=== PATIENT | male | born 1940 | race Caucasian/White ===

== ENCOUNTER 2020-06-27 13:56 | Outpatient (CLI) | payer MEDICARE, MEDICAID, SELFPAY ==
--- NOTE | 2020-06-27 15:34 | ONC CON_ITS ---
Dr. Lorenz New Patient Note Patient: Kane Tavera Unit #: [id number]: 1940 Dicatated By: Cedric Lorenz M.D.Date of Visit: Jun 27, 2020 Onc MED New Patient/Consult Referring Physician: Dr. Nico Nova M.D. History of Present Illness: Mr. Kane Tavera is a 80-year-old gentleman with 2-months long history of nodule under his chin, for which he was referred to ENT for evaluation and underwent needle aspiration of submental lymph node on May 21, 2020 which showed malignant cell present and features were suggestive of possible neuroendocrine origin and there was a possibility of metastatic process because of that Dr. Nova ordered CT PET scan, which was done on June 08, 2020 showed intense abnormal activity in the transverse colon measuring 2.8 cm with SUV of 12.2, and also showed 2.7 x 4 cm left upper lobe mass with SUV of 18.1 and posterior left hilar and subaortic nodes have high likelihood of malignancy. And biopsied submental node measuring 1.6 cm has SUV of 10. And other malignant FDG positive nodes are present in right axilla, left lower quadrant mesenteric root, left external iliac territories., There are bilateral adrenal masses indicating metastatic disease measuring 4.1 cm on the right with SUV of 17.3 and 4.8 on the left with SUV of 24.1. Fascial and muscular implants are noted in the posterior right renal fascia, fascia in between the right gluteal muscle and subcutaneous lateral right hip. Recent history of basal cell carcinoma removal from right chin, right anterior neck and right posterior neck on May 31, 2020. Patient denies any hemoptysis or hematemesis, denies any melena or hematochezia, denies any weight loss, patient said last colonoscopy was done more than 10 years ago. Denies any abdominal pain. Denies any shortness of breath, patient has history of smoking but quit many years ago. Past Medical History: Mr. Payne medical history consists of anxiety, chronic obstructive pulmonary disease, depression, gastroesophageal reflux disease, history of alcoholism, hypothyroidism, and post traumatic stress disorder. Past Surgical History: Mr. Payne surgical/procedural history consists of cataract excision and cholecystectomy. Medications: Advair Diskus 1 Puff(s) (of 250-50 mcg/dose) Aerosol Powder, Breath Activated Inhalation every am, CeleXA 1 Tablet (of 20 mg) Oral daily, Combivent Respimat 1 Puff(s) (of 20-100 mcg/act) Aerosol, solution Inhalation four times a day, guaiFENesin 1 Tablet (of 400 mg) Oral b.i.d., HYDROcodone-Acetaminophen 1 Tablet (of 10-325 mg) Oral q 4 hours PRN, Melatonin 2 Tablet (of 5 mg) Oral at bedtime, Midodrine HCl 1 Tablet (of 2.5 mg) Oral t.i.d., Milk of Magnesia 30 mL (of 400 mg/5mL) Suspension Oral daily PRN, MiraLax 1 Powder Oral daily, ProAir HFA 2 Puff(s) (of 108 (90 base) mcg/act) Aerosol, solution Inhalation q 4 hours, Robafen DM 5 mL (of 100-10 mg/5mL) Syrup Oral q 4 hours PRN, Senna S 1 Tablet (of 8.6-50 mg) Oral b.i.d., Synthroid 2 Tablet (of 50 mcg) Oral daily Allergies: Aspirin and Levaquin. Social History: Mr. Tavera is . Family History: Mr. Tavera's mother at age 78: jaw cancer. Mr. Tavera's father at age 70: stomach cancer. pt has 3 brothers but is unsure about their medical history. Review Of Symptoms: Review of Systems is not available for this patient. Vital Signs: Most recent vitals are not available for this patient. Performance Status: 1 - No physically strenuous activity, but ambulatory and able to carry out light or sedentary work (e.g. office work, light house work). (ECOG) Physical Examination: ENMT - No mouth sores, no thrush, no jaundice, about 2 cm sized submental lymph node palpable nontender and no overlying skin changes, Respiratory - Lungs are clear to auscultation, Cardiovascular - Regular rate and rhythm of heart, Abdomen - Soft, bowel sounds present, Extremities - No visible edema. Lab/Imaging: Most recent lab results are not available for this patient. 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 Bilaterals centrilobular emphysema. Questionable right hilar lymph node. Basal cell carcinoma involving right chin and right anterior and posterior neck status post removal on May 31, 2020 Plan: Discussed with patient regarding his CT PET scan findings , as well as FNA from submental lymph node which showed malignant cell suggestive of neuroendocrine origin, his CT PET scan shows left upper lobe of lung mass and left hilar/subaortic lymph node which could be small cell lung cancer, which may have metastasis to submental lymph node and also showed metastatic disease to adrenal gland and other sites as seen on PET scan but question is regarding transverse colon mass which could represent second primary or metastatic disease. At this point, we will consider bronchoscopy with biopsy from left upper lobe mass as well as left hilar lymph node and if it shows small cell lung cancer, that will confirm metastatic disease to submental lymph node but if it shows non-small cell or other metastatic process , from other primary like colon, then will consider submental lymph node biopsy to confirm the histology as FNA was suggestive of neuroendocrine origin. We will also refer him to surgery for colonoscopy to assess transverse colon mass and also request Port-A-Cath placement to facilitate systemic therapy. In the meantime , we will do baseline labs CBC CMP and also check CEA level. Patient will return to clinic after bronchoscopy/colonoscopy for further discussion and planning. Signed By: Cedric Lorenz M.D. <<Signature on File>>
[2020-06-27 16:45] LABS: Carcinoembryonic Antigen 3.2 ng/mL (0.0-4.7)
== END 2020-06-27 13:57 | disposition home or self-care (01) ==
PROVIDERS: PCP Family Medicine; Visit Provider Internal Medicine Hematology & Oncology
DX: C80.1 Malignant (primary) neoplasm, unspecified (principal); C79.72 Secondary malignant neoplasm of left adrenal gland; C79.71 Secondary malignant neoplasm of right adrenal gland; C77.8 Secondary and unspecified malignant neoplasm of lymph nodes of multiple regions; C79.89 Secondary malignant neoplasm of other specified sites; C44.319 Basal cell carcinoma of skin of other parts of face; R91.8 Other nonspecific abnormal finding of lung field; R89.7 Abnormal histological findings in specimens from other organs, systems and tissues; R93.3 Abnormal findings on diagnostic imaging of other parts of digestive tract; K63.9 Disease of intestine, unspecified; J43.9 Emphysema, unspecified; Z87.891 Personal history of nicotine dependence
CPT/HCPCS: 36415; 82378

== ENCOUNTER → 2020-07-05 11:21 | Outpatient (BNVA) | payer MEDICARE, MEDICAID, SELFPAY | PROVIDERS: PCP Family Medicine; Visit Provider Surgery | DX: Z11.59 Encounter for screening for other viral diseases (principal); C79.9 Secondary malignant neoplasm of unspecified site | CPT/HCPCS: 87635 ==

== ENCOUNTER 2020-07-10 09:13 | Day surgery (SDC) | payer MEDICARE, MEDICAID, SELFPAY ==
[2020-07-08 10:43] VITALS: BMI 23.3
[2020-07-10 09:31] VITALS: BP 105/57; PULSE 80; RESP 18; TEMP 36.1; O2SAT 95
[2020-07-10] MEDS: sodium chloride 0.9% 1,000 ML 30 ML IV (09:51)
--- NOTE | 2020-07-10 10:36 | ANES.PREANE2 ---
Pre-Anesthetic Assessment Pre-Anesthetic Assessment: Height/Weight: Height 1.75 m Weight 71.668 kg Temp Pulse Resp BP Pulse Ox 97 F L 80 18 105/57 95 07/10/20 09:31 07/10/20 09:31 07/10/20 09:31 07/10/20 09:31 07/10/20 09:31 Preop Diagnosis: Metastatic cancer Proposed Procedure: Operation Date: 07/10/20 11:00 Proposed Procedures p EGD [id number] K21.9 C79.9(Not Applicable) - Beni Leggett MD s Colonoscopy(Not Applicable) - Beni Leggett MD Familial anesthetic complications: None Was Beta Ralph taken within 24 hours: N/A Last intake: Intake Last Liquid Date 07/09/20 Last Liquid Time 19:00 Last Solid Date 07/08/20 Last Solid Time 17:00 Social: Social History: No alcohol and No tobacco Exam: Pre-Anes Outpt Exam: alert, oriented x 3, clear to auscultation bilaterally and regular rate & rhythm Airway: Cervical ROM: WNL MP: 2 Dentition: False Pulmonary: Pulmonary: Asthma Comments: lung mass Metabolic: Metabolic: Thyroid Anesthetic Plan: ASA status: 3 Anesthesia: MAC Risk of > 500 ml blood loss (7ml/kg in children): No Meds/Allergies Current Medications: Current Medications Generic Name Dose Route Start Last Admin Trade Name Freq PRN Reason Stop Dose Admin Sodium Chloride 1,000 mls @ 30 ml s/hr 07/10/20 09:30 07/10/20 09:51 Sodium Chloride 0.9% IV 07/11/20 09:29 30 mls/hr .Q24H CANELO Administration PFSH Anesthesia PFSH: Family History Father Cancer jaw cancer Mother Cancer stomach cancer Denies family history of Anesthesia complication Bleeding disorder Social History Alcohol intake: current Alcohol intake frequency: 3 or more drinks per day Alcohol type: beer and hard liquor Adopted: No Caregiver/support person: Yes Lives independently: Yes Marital status: / Data Anesthesia Cardiac Studies: No Data to Display
--- NOTE | 2020-07-10 11:27 | W.PM.OPSUD ---
Surgery/Procedure H&P Update DATE OF PROCEDURE: July 10, 2020 DATE H&P PERFORMED: 07/03/20 H&P UPDATE INFORMATION: I have reviewed H&P completed within last 30 days, I have examined patient prior to procedure and No changes to prior documentation PREOP DIAGNOSIS: Metastatic cancer PRIMARY INDICATION FOR PROCEDURE: The same PLANNED PROCEDURE: Operation Date: 07/10/20 11:00 Proposed Procedures p EGD [id number] K21.9 C79.9(Not Applicable) - Beni Leggett MD s Colonoscopy(Not Applicable) - Beni Leggett MD
[2020-07-10 12:58] VITALS: BP 133/76; PULSE 75; RESP 18; TEMP 36.6; O2SAT 92
[2020-07-10 13:12] VITALS: BP 136/81; PULSE 87; RESP 18; O2SAT 92
--- NOTE | 2020-07-10 13:25 | ANE.PACU2 ---
Inpatient post-anesthesia follow up: Airway intact: Yes Vital signs: Temperature 97.9 F Pulse Rate 87 Respiratory Rate 18 Blood Pressure 136/81 Pulse Oximetry 92 Oxygen Delivery Me thod Room Air Oxygen Flow Rate Fraction of Inspir ed Oxygen Hydration adequate: Yes Nausea and vomiting: No Pain level: 1 Mental status: Baseline
== END 2020-07-10 13:29 | disposition home or self-care (01) ==
PROVIDERS: PCP Family Medicine; Visit Provider Surgery
PROC: 0DJ08ZZ Inspection of Upper Intestinal Tract, Via Natural or Artificial Opening Endoscopic (ICD-10-PCS; CPT 43235; principal; 2020-07-10 11:00)
PROC: 0DJD8ZZ Inspection of Lower Intestinal Tract, Via Natural or Artificial Opening Endoscopic (ICD-10-PCS; CPT 45378; 2020-07-10 11:00)
DX: C79.9 Secondary malignant neoplasm of unspecified site (principal); D12.0 Benign neoplasm of cecum; D12.4 Benign neoplasm of descending colon; K22.8 Other specified diseases of esophagus; K29.70 Gastritis, unspecified, without bleeding; J45.909 Unspecified asthma, uncomplicated
CPT/HCPCS: 12345; 43239; 45380; 45385; 88305; J2704; J7030

== ENCOUNTER → 2020-07-12 18:33 | Outpatient (BNVA) | payer MEDICARE, MEDICAID, SELFPAY | PROVIDERS: PCP Family Medicine; Visit Provider Surgery | DX: Z11.59 Encounter for screening for other viral diseases (principal); C79.9 Secondary malignant neoplasm of unspecified site | CPT/HCPCS: 87635 ==

== ENCOUNTER 2020-07-19 06:02 | Day surgery (SDC) | payer MEDICARE, MEDICAID, SELFPAY ==
[2020-07-18 12:57] VITALS: BMI 20.9
[2020-07-19] VITALS (10 sets, daily range): BP systolic 111–127; BP diastolic 64–85; PULSE 83–91; RESP 16–22; TEMP 36.3–36.8; O2SAT 95–99
--- NOTE | 2020-07-19 | CT_ITS ---
Guided Bronchoscopy Planning CT images; total exam DLP: 555.54 mGy-cm MTDD
--- NOTE | 2020-07-19 | SCC_ITS ---
Procedure Done: Right subclavian vein PowerPort placement 10.8 seconds of fluoroscopic guidance, for a cumulative dose of 0.87 mGy, was provided to Dr. Leggett by the radiology department. C-arm images of the chest were saved for the patient's permanent record. [facility]
--- NOTE | 2020-07-19 06:04 | SC_ITS ---
WS: [id number] C-ARM RADIOGRAPHS CHEST; 2 IMAGES HISTORY: Port-A-Cath placement COMPARISON: None available. Intraoperative imaging during Port-A-Cath placement. The distal extent of the Port-A-Cath cannot be d etermined. SC/C-arm FL for CVA [id number] IMPRESSION: Intraoperative imaging during Port-A-Cath placement.
--- NOTE | 2020-07-19 06:22 | W.PM.OPSUD ---
Surgery/Procedure H&P Update DATE OF PROCEDURE: July 19, 2020 DATE H&P PERFORMED: 07/03/20 H&P UPDATE INFORMATION: I have reviewed H&P completed within last 30 days, I have examined patient prior to procedure and Changes to prior documentation as noted here CHANGES TO PREVIOUS DOCUMENTATION: Specimens obtained from the esophagus and the colon showed: A. Esophagus, esophageal polyp , polypectomy: ?Squamocolumnar mucosa with reflux associated changes. ?No malignancy identified. B. Colon, descending colon polyp , polypectomy: ?Tubulovillous adenoma (low grade dysplasia). C. Colon, left colonic mass , biopsy: ?Fragments of tubulovillous adenoma (low grade dysplasia). ?Deeper sections examined. PREOP DIAGNOSIS: Metastatic cancer PRIMARY INDICATION FOR PROCEDURE: The same PLANNED PROCEDURE: Operation Date: 07/19/20 07:00 Proposed Procedures s Kim C79.9 95170 [id number] 40986(Not Applicable) - Vivian Smith MD p Portacath Placement 77857 C79.9(Not Applicable) - Beni Leggett MD
[2020-07-19] MEDS: sodium chloride 0.9% 1,000 ML 30 ML IV (06:29)
--- NOTE | 2020-07-19 06:31 | ECG_ITS ---
[facility] Test Date: 2020-07-19 Pat Name: Kane Tavera Department: Room: Gender: Male Nuclear Pharmacist: : 1940 Requested By: Beni Leggett Order Number: [id number] Bishnu MD: NOHEMI CASEY Measurements Intervals [place] Rate: 69 P: 92 WY: 240 QRS: 45 QRSD: 105 T: 81 QT: 377 QTc: 405 Interpretive Statements SINUS RHYTHM WITH FIRST DEGREE AV BLOCK No previous ECG available for comparison Electronically Signed On 07-19-2020 18:23:01 CDT by NOHEMI CASEY [id number]
--- NOTE | 2020-07-19 06:31 | P.ANESASSM_ITS ---
Pre-Anesthetic Assessment Pre-Anesthetic Assessment: Height/Weight: Height 1.83 m Weight 69.853 kg Temp Pulse Resp BP Pulse Ox 97.4 F L 87 16 126/73 96 07/19/20 06:23 07/19/20 06:23 07/19/20 06:23 07/19/20 06:23 07/19/20 06:23 Preop Diagnosis: Metastatic cancer Proposed Procedure: Operation Date: 07/19/20 07:00 Proposed Procedures s Veran C79.9 34721 [id number](Not Applicable) - Vivian Smith MD p Portacath Placement 45156 C79.9(Not Applicable) - Beni Leggett MD Familial anesthetic complications: NOne Was Beta Ralph taken within 24 hours: N/A Last intake: Intake Last Liquid Date 07/18/20 Last Liquid Time 17:00 Last Solid Date 07/18/20 Last Solid Time 17:00 Social: Social History: Tobacco and No alcohol Comment: former smoker, chews Exam: Pre-Anes Outpt Exam: alert, oriented x 3, clear to auscultation bilaterally and regular rate & rhythm Airway: Cervical ROM: WNL MP: 3 Dentition: False Pulmonary: Pulmonary: COPD Comments: lung cancer GI: GI: GERD Neuropsych: Neuropsych: None reported Anesthetic Plan: ASA status: 4 Anesthesia: General and MAC Other: MAc FOR port, general for veran Risk of > 500 ml blood loss (7ml/kg in children): No Meds/Allergies Current Medications: Current Medications Generic Name Dose Route Start Last Admin Trade Name Freq PRN Reason Stop Dose Admin Sodium Chloride 1,000 mls @ 30 ml s/hr 07/19/20 06:15 07/19/20 06:29 Sodium Chloride 0.9% IV 07/20/20 06:14 30 mls/hr .Q24H CANELO Administration PFSH Anesthesia PFSH: Medical History (Updated 07/15/20 @ 09:02 by Vivian Smith MD) Anxiety COPD (chronic obstructive pulmonary disease) Depression GERD (gastroesophageal reflux disease) Hypothyroidism Mass of chin Mass of upper lobe of left lung PTSD (post-traumatic stress disorder) Surgical History (Updated 07/15/20 @ 09:02 by Vivian Smith MD) History of cataract extraction History of laparoscopic cholecystectomy Family History Father Cancer jaw cancer Mother Cancer stomach cancer Denies family history of Anesthesia complication Bleeding disorder Social History Smoking and tobacco status: former smoker Quit status (tobacco): has quit using tobacco Year quit tobacco: 1989 - PD x 40 Years Second hand smoke exposure: No Alcohol intake: former Adopted: No Caregiver/support person: Yes Lives independently: Yes Household members: caregiver Housing: Detention Marital status: / Current occupational status: retired History of recent travel: No Current gender identity: Male Data Anesthesia Cardiac Studies: No Data to Display
[2020-07-19] MEDS: heparin, porcine 1,000 unit/mL INJ 10 mL 10000 UNIT IRRIGATION ×2 (07:13)
[2020-07-19] MEDS: lidocaine 2% INJ 20 mL INJECTION (07:13)
--- NOTE | 2020-07-19 07:33 | P.OP_ITS ---
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 Plan of care; After thorough history physical examination and reviewing the chart, I counseled the patient for Port-A-Cath placement, indications, risks including pneumothorax and injury of major vascular structures, benefits,indications and alternatives were all discussed with the patient, patient understands and is interested to proceed. Rationale was carefully and clearly discussed with the patient.Appropriate informed consent have been reviewed and signed. Procedure: Patient was identified in the holding area and taken to the operative room and placed in supine position IV propofol was given by the anesthesia provider ,both arms were tucked,Time-out was done verifying the patient's name/date of /planned procedure and destination after the procedure, all were in agreement. SCDs confirmed to be functioning, preoperative antibiotics administered per protocol, and beta elke protocol was confirmed, appropriate positioning of the patient was done by me. Medications were reviewed to assess for anticoagulant usage. Risks and benefits and prevention of central line associated blood stream infection (CLABSI) were discussed with the patient/CPOA, and a consent was obtained. Monitors were in place and monitored throughout the procedure. All necessary supplies were available prior to start. Hand hygiene was completed prior to starting. Maximum barrier technique was utilized including a sterile gown, sterile gloves with a hat and mask. Site was was prepped with [chlorhexidine] and a full body drape was placed. 5 mL of 2% lidocaine was injected into the skin with a 25 gauge needle. Prep& drape was done under the usual sterile technique, lidocaine 2% was injected at the site of the stick, started by right subclavian stick that retrieved venous blood was obtained from the first stick, a guidewire was then threaded and under the guidance of fluoroscopy position was confirmed to be in the IVC and my interpretation, there was no PVC changes, at that point the guidewire was secured to the drapes with a hemostat and the needle was taken out, attention was then deviated towards creation of a pocket for the port were lidocaine 2% was injected using an 15 blade knife skin incision was created dissection using the Bovie to create a pocket for the Port-A-Cath to be accommodated at the right upper chest, hemostasis was secured, after the port being appropriately flushed it was inserted into the pocket and a tunneler was used to accommodate the catheter of the port cath to be delivered through the incision first created at the site of the stick, at that point under fluoroscopy an estimated length was measured for the catheter and was cut at the designed level, followed by that a dilator with the sheath introduced onto the guidewire the dilator and the wire were retrieved and the catheter of the port was introduced via the sheath where it was peeled off and the catheter maintained to be in the SVC that was confirmed with fluoroscopy, and the fluoroscopy interpretation was done by me throughout the entire procedure. The port was kept in place,3-0 Vicryl deep subdermal interrupted sutures, skin was then closed by 4-0 Monocryl as subcuticular closure. The stick site was closed by 3/0 Vicryl and surgical glue was used followed by dressing. Patient tolerated the procedure well was taken to the recovery area Count was correct at the end of the procedure I was present for the whole entire procedure Position of the catheter was checked with a postoperative imaging in the form of a CT scan as Dr. Smith requested one for the bronchoscopy procedure and it looks to be in good position.
--- NOTE | 2020-07-19 08:11 | W.PM.OPSUD ---
Surgery/Procedure H&P Update DATE OF PROCEDURE: July 19, 2020 DATE H&P PERFORMED: 07/15/20 H&P UPDATE INFORMATION: I have reviewed H&P completed within last 30 days, I have examined patient prior to procedure and No changes to prior documentation PREOP DIAGNOSIS: Metastatic cancer PRIMARY INDICATION FOR PROCEDURE: Suspected lung cancer PLANNED PROCEDURE: Bronchoscopy inspection of the airway, possible navigational bronchoscopy guided transbronchial biopsies, fine-needle aspiration, bronchoalveolar lavage, percutaneous transthoracic needle biopsy. Operation Date: 07/19/20 07:00 Proposed Procedures s Veran C79.9 47427 [id number](Not Applicable) - Vivian Smith MD p Portacath Placement 12533 C79.9(Not Applicable) - Beni Leggett MD
--- NOTE | 2020-07-19 08:30 | SUR.PHASEII ---
0743 back from or for port v/s 97.3-71-16-140/70 with O2-face mask 100%,O2 sat 100%,sleepy but arousable awaiting to go to cat scan for veran 0758 v/s 20-68-90-152/68 O2 on room air 95%,waking up some,asked if pt needed the ba 0805 gone to cat scan via stretcher with danelle rep, 0820 back from cat scan 0835 gone to OR via stretcher for bronchoscopy/danelle
[2020-07-19] MEDS: lidocaine 1% INJ 20 mL XX (08:56)
--- NOTE | 2020-07-19 09:55 | SUR.OPER ---
EBUS BALLOON INTACT UPON REMOVAL
--- NOTE | 2020-07-19 10:02 | PM.OP ---
Operative Report Date of procedure: July 19, 2020 Pre-op Diagnosis: Metastatic cancer Post-op diagnosis: same Brief History: This is an 80-year-old gentleman coming in for evaluation of suspected lung cancer Procedure: Name of the procedure: Bronchoscopy with inspection of the airway, bronchoalveolar lavage, endobronchial biopsies, endobronchial ultrasound-guided transbronchial needle aspiration of lymph nodes and control of bleeding. Indication: Suspected lung cancer Anesthesia: General anesthesia. Local anesthesia: The julius in the right and left mainstem bronchi were anesthetized with 1% lidocaine, 3 mL. Description of the procedure: The procedure was explained to the patient and the consent was obtained. The patient was brought to the OR. The patient underwent endotracheal intubation for general anesthesia. Following induction of general anesthesia, the bronchoscope was advanced through the ET tube. The lower trachea appeared to be saber-sheath in appearance. The julius was sharp. The julius, the right and left mainstem bronchi are anesthetized with 1% lidocaine. In a systematic manner bilateral bronchial tree was then examined. The bronchoscope was advanced into the left mainstem bronchus. There was mild erythema. The left upper lobe, lingula and left lower lobe bronchi were examined up to the third subsegmental level. An endobronchial lesion was identified in the fourth subsegmental level in the anterior segment of the left upper lobe. Navigational bronchoscopy guided endobronchial biopsies were obtained from this lesion. Bronchoalveolar lavage and Cytobrush was performed from the same segment. The bronchoscope was then introduced into the right mainstem bronchus. The right upper lobe, right middle lobe and right lower lobe bronchi were examined up to the third subsegmental level and no abnormalities were identified. There was mucus throughout the airways. Bronchoalveolar lavage was performed from the anterior segment of the left upper lobe. The fluid was sent for cytology. Endobronchial biopsies were performed from anterior segment of left upper lobe. The endobronchial ultrasound was introduced through the ET tube. No mediastinal lymphadenopathy was identified. Slightly prominent left hilar lymph node was identified. Fine-needle aspiration was performed from station 7 and 11 L. Samples: 1. Bronchoalveolar lavage specimen was sent for cytology. 2. The endobronchial biopsies are sent for histopathology. 3. The Cytobrush was sent for cytology. 4. The transbronchial needle aspiration of the aforementioned lymph node groups were sent for cytology. Complications: There was no immediate complications. No significant bleeding post procedure.
[2020-07-19] MEDS: ipratropium 0.5 mg/2.5 mL Neb INHALATION (10:18)
--- NOTE | 2020-07-19 10:30 | ANE.PACU2 ---
Inpatient post-anesthesia follow up: Airway intact: Yes Vital signs: Temperature 98 F Pulse Rate 83 Respiratory Rate 18 Blood Pressure 112/64 Pulse Oximetry 97 Oxygen Delivery Me thod Room Air Oxygen Flow Rate 8 Fraction of Inspir ed Oxygen Hydration adequate: Yes Nausea and vomiting: No Pain level: 2 Mental status: Baseline
--- NOTE | 2020-07-19 10:34 | PTH.EBUS ---
Endobronchial Ultrasound Specimen(s): Left upper lobe endobronchial biopsy Gross: The specimen is received fresh labeled with the patient's name and MRN number and consists of a sheriff-white fragment measuring 0.1 cm in greatest dimension. To touch prep Diff-Quik slides are prepared for cytology rapid onsite interpretation. Preliminary Impression: Lung, left upper lobe, endobronchial biopsy: ?Atypical clusters identified. - Specimen Information Pathologist: Yesika Joe Date: 07/19/20 Specimen reported at what time: 09:10 - Clinician Specimen collection time: 09:00 Clinician reported to: Vivian Smith
--- NOTE | 2020-07-19 10:37 | PTH.EBUS ---
Endobronchial Ultrasound Specimen(s): Lung, station 7 lymph node fine-needle aspiration biopsy. Gross: Specimen is received fresh for rapid onsite evaluation, station 7 lymph node submitted as 0.1 cm of sheriff-red blood fragments. 4 Diffquik slides. Preliminary Impression: Lung, lymph node, station 7, fine-needle aspiration biopsy: ?Few atypical clusters seen in a background of ciliated bronchial epithelial cells. ?Remaining specimen submitted for formalin fixation and permanent sections. - Specimen Information Pathologist: Yesika Joe Date: 07/19/20 Specimen reported at what time: 09:45 - Clinician Specimen collection time: 09:32 Clinician reported to: Vivian Smith
--- NOTE | 2020-07-19 10:57 | PTH.EBUS ---
Endobronchial Ultrasound Specimen(s): Left hilar lymph node, fine-needle aspiration biopsy. Gross: The specimen is submitted for rapid onsite EBUS evaluation. The specimen is labeled with the patient's name and MRN number and submitted fresh, containing 2 fragments of red-sheriff tissue measuring 0.1 cm in greatest dimension. 4 Diff-Quik slides are prepared. Preliminary Impression: Lung, lymph node, left hilar, fine-needle aspiration biopsy: ?Lymphoid tissue with pigmented histiocytes. ?Material is adequate and is submitted for permanent sections. - Specimen Information Pathologist: Yesika Joe Date: 07/19/20 Specimen reported at what time: 09:49 - Clinician Specimen collection time: 09:39 Clinician reported to: Vivian Smith
--- NOTE | 2020-07-19 11:32 | SUR.PHASEII ---
1120 report given to [facility] and spoke to charge nurse ABBEY Camacho,discharge instructions given to daughter \dia baltazar and d/c paperwork given to tru(ambulance driver paramedic) with [employer]
== END 2020-07-19 11:15 | disposition home or self-care (01) ==
PROVIDERS: Surgery; PCP Family Medicine; Visit Provider Internal Medicine Critical Care Medicine
PROC: (CPT 36561; 2020-07-19 07:00)
PROC: 0BJ08ZZ Inspection of Tracheobronchial Tree, Via Natural or Artificial Opening Endoscopic (ICD-10-PCS; CPT 31622; principal; 2020-07-19 08:30)
PROC: 0BJ08ZZ Inspection of Tracheobronchial Tree, Via Natural or Artificial Opening Endoscopic (ICD-10-PCS; CPT 31622; 2020-07-19 08:30)
DX: C79.9 Secondary malignant neoplasm of unspecified site (principal); J44.9 Chronic obstructive pulmonary disease, unspecified; K21.9 Gastro-esophageal reflux disease without esophagitis; F41.9 Anxiety disorder, unspecified; E03.9 Hypothyroidism, unspecified; Z87.891 Personal history of nicotine dependence
CPT/HCPCS: 36561; 12345; 31622; 31627; 76000; 77001; 77011; 80500; 88112; 88305; 93005; 96365; C1788; J0690; J1644; J2704; J2710; J3010; J3490; J7030; J7611; J7644

== ENCOUNTER 2020-08-02 08:15 | Outpatient (CLI) | payer MEDICARE, MEDICAID, SELFPAY ==
--- NOTE | 2020-08-02 08:39 | CT_ITS ---
WS: [id number] CT scan of the chest with IV contrast, additional two-dimensional coronal and sagittal reconstruction was performed. 08/02/2020 Clinical Data: BASAL CELL CARCINOMA OF SKIN Comparison: PET scan, 06/08/2020. DLP: 779.20 mGy-cm All CT scans at [facility] use at least one of these dose optimization techniques: automat ed exposure control; mA and/or kV adjustment per patient size (includes targeted exams where dose is matched to clinical indication); or iterative reconstruction. Findings: There is a left upper lobe mass measuring 2.55 x 4.48 cm seen best axial image 23 of 70 most consiste nt with a primary carcinoma of the lung. There are numerous nodules throughout both lungs which may r epresent small metastatic lesions. The heart size is normal with no pericardial effusion. There is coronary artery calcification. The t rachea bifurcates normally into the bronchi. The pulmonary arterial system and thoracic aorta demonst rate no abnormalities or dilatations. There is no axillary or significant mediastinal adenopathy. The thyroid gland shows normal enhancement. No hilar adenopathy is present. There is a small hiatal kristian ia. 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 No bony metastatic lesions are seen. The upper abdomen shows bilateral adrenal enlargement which probably represent metastatic disease. Th e right adrenal measures 5.59 cm and the left is 6.65 cm. There is a soft tissue nodule posterior to the right kidney measuring 0.75 cm which could also represent a metastatic lesion. There are clips in the gallbladder fossa from a cholecystectomy. CT/CT chest w con* [id number] Impression: 1. Left upper lobe mass with greatest diameter 4.48 cm consistent with primary cancer lung. 2. Numerous small nodules throughout the lungs which may represent small metast atic deposits. 3. Bilateral adrenal enlargement which probably represents metastatic disease. 4. Small nodule posterior to the right kidney which may represent a metastatic nodule.
[2020-08-02 09:02] LABS: Blood Urea Nitrogen 12 mg/dL (8-23)
== END 2020-08-02 08:16 | disposition home or self-care (01) ==
LOC: RADWPI 08:27
PROVIDERS: PCP Family Medicine; Visit Provider Specialist
DX: C44.91 Basal cell carcinoma of skin, unspecified (principal); R91.8 Other nonspecific abnormal finding of lung field
CPT/HCPCS: 71260; 82565; 84520; Q9967

== ENCOUNTER 2020-08-02 09:46 | Outpatient (CLI) | payer MEDICARE, MEDICAID, SELFPAY ==
[2020-08-02 10:33] LABS: Basophils # 0.1 10^3/uL (0.0-0.1); Basophils % 0.5 %; Eosinophils # 0.2 10^3/uL (0.0-0.8); Eosinophils % 1.9 %; Hematocrit 37.1 % (42.0-52.0); Hemoglobin 11.5 g/dL (11.7-16.6); Lymphocytes % 17.2 %; Mean Corpuscular Hemoglobin 26.3 pg (28.0-34.0); Mean Corpuscular Volume 84.7 fL (80-94); Mean Platelet Volume 10.4 fL (7.4-10.4); Monocytes # 1.2 10^3/uL (0.2-0.9); Monocytes % 10.6 %; Neutrophils # 8.03 10^3/uL (1.8-7.7); Neutrophils % 69.5 %; Nucleated Red Blood Cells % 0 %; Platelet Count 402 10^3/cmm (130-400); Red Blood Count 4.38 10^6/uL (4.1-5.3); Red Cell Distribution Width 13.4 % (12.1-15.1); White Blood Count 11.5 10^3/uL (4.0-10.0)
[2020-08-02 10:58] LABS: Alanine Aminotransferase 6 U/L (0-41); Albumin Level 3.9 g/dL (3.5-5.2); Alkaline Phosphatase 73 IU/L (40-130); Aspartate Amino Transferase 13 U/L (0-40); Blood Urea Nitrogen 13 mg/dL (8-23); Carbon Dioxide 27 mmol/L (22-29); Chloride 100 mmol/L (98-107); Globulin 3.4 g/dL (1.3-4.6); Glucose 106 mg/dL (65-115); Osmolality Calculated 285 mOsm/kg (285-295); Sodium 137 mmol/L (136-145); Total Bilirubin 0.3 mg/dL (0.15-1.2); Total Protein 7.3 g/dL (6.6-8.7)
== END 2020-08-02 09:47 | disposition home or self-care (01) ==
LOC: ONCMED 09:50
PROVIDERS: PCP Family Medicine; Visit Provider Internal Medicine Hematology & Oncology
DX: C34.12 Malignant neoplasm of upper lobe, left bronchus or lung (principal); C44.91 Basal cell carcinoma of skin, unspecified; R91.8 Other nonspecific abnormal finding of lung field
CPT/HCPCS: 36415; 71260; 80053; 82565; 84520; 85025; Q9967

== ENCOUNTER 2020-08-05 05:47 | Outpatient (CLI) | payer MEDICARE, MEDICAID, SELFPAY ==
--- NOTE | 2020-08-05 15:05 | ONC FU_ITS ---
Dr. Lorenz follow up note Patient: Kane Tavera Unit #: [id number]: [id number] Dicatated By: Cedric Lorenz M.D.Date of Visit:Aug 05, 2020 Onc Med Follow-up/Prog Note History of Present Illness: Mr. Kane Tavera is a 80-year-old gentleman with 2-months long history of nodule under his chin, for which he was referred to ENT for evaluation and underwent needle aspiration of submental lymph node on May 21, 2020 which showed malignant cell present and features were suggestive of possible neuroendocrine origin and there was a possibility of metastatic process because of that Dr. Nova ordered CT PET scan, which was done on June 08, 2020 showed intense abnormal activity in the transverse colon measuring 2.8 cm with SUV of 12.2, and also showed 2.7 x 4 cm left upper lobe mass with SUV of 18.1 and posterior left hilar and subaortic nodes have high likelihood of malignancy. And biopsied submental node measuring 1.6 cm has SUV of 10. And other malignant FDG positive nodes are present in right axilla, left lower quadrant mesenteric root, left external iliac territories., There are bilateral adrenal masses indicating metastatic disease measuring 4.1 cm on the right with SUV of 17.3 and 4.8 on the left with SUV of 24.1. Fascial and muscular implants are noted in the posterior right renal fascia, fascia in between the right gluteal muscle and subcutaneous lateral right hip. 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 In the mid ascending colon, abnormal, multiple ascending polyps were seen and biopsy was obtained which also came back tubular villous adenoma low-grade. EGD was done on same date July 10, 2020 showed in the mid third esophagus, reflux disease seen, 7 pedunculated polyps 2 mm x 5 mm seen, not bleeding and was excised and biopsy shows squamocolumnar mucosa with reflux associated changes, no malignancy identified. Recent history of basal cell carcinoma removal from right chin, right anterior neck and right posterior neck on May 31, 2020. Patient denies any hemoptysis or hematemesis, denies any melena or hematochezia, denies any weight loss, patient said last colonoscopy was done more than 10 years ago. Denies any abdominal pain. Denies any shortness of breath, patient has history of smoking but quit many years ago. Came for follow-up denies any specific complaint, in fact patient was called in early as his transbronchial lung biopsy confirmed small cell lung cancer, Medications: Advair Diskus 1 Puff(s) (of 250-50 mcg/dose) Aerosol Powder, Breath Activated Inhalation every am, Ativan 1 Tablet (of 0.5 mg) Oral b.i.d., CeleXA 1 Tablet (of 10 mg) Oral daily, Combivent Respimat 1 Puff(s) (of 20-100 mcg/act) Aerosol, solution Inhalation four times a day, guaiFENesin 1 Tablet (of 400 mg) Oral b.i.d., HYDROcodone-Acetaminophen 1 Tablet (of 10-325 mg) Oral q 4 hours PRN, Melatonin 2 Tablet (of 5 mg) Oral at bedtime, Midodrine HCl 1 Tablet (of 2.5 mg) Oral t.i.d., Milk of Magnesia 30 mL (of 400 mg/5mL) Suspension Oral daily PRN, MiraLax 1 Powder Oral daily, Ondansetron HCl 1 Tablet (of 4 mg) Oral q 6 hours, PriLOSEC 1 Capsule (of 20 mg) Capsule Delayed Release Oral daily, ProAir HFA 2 Puff(s) (of 108 (90 base) mcg/act) Aerosol, solution Inhalation q 4 hours, Robafen DM 5 mL (of 100-10 mg/5mL) Syrup Oral q 4 hours PRN, Senna S 1 Tablet (of 8.6-50 mg) Oral b.i.d., Synthroid 1 Tablet (of 50 mcg) Oral daily Allergies: Aspirin and Levaquin. Review of Systems: Review of Systems is not available for this patient. Vital Signs: Performed on Aug 05, 2020 09:10 Height - 69.00 in Weight - 155.2 lbs (HIGH) BSA - 1.85 sq.m BMI - 22.92 Temperature - 97.4 F (LOW) Pulse - 88 /min Respiration - 20 /min BP - 102/52 mm(hg) O2 Sat - 95 % (LOW) Pain - 8 Performance Status: 0 - Fully active, able to carry on all predisease activities without restrictions. (ECOG) Physical Examination: ENMT - No mouth sores, no thrush, no jaundice, Respiratory - Lungs are clear to auscultation, Cardiovascular - Regular rate and rhythm of heart, Abdomen - Soft, bowel sounds present, Extremities - No visible edema. Lab/Imaging: Test performed on Jun 27, 2020 15:45 CEA 3.2 ng/mL Impression: small cell lung cancer per transbronchial biopsy of left upper lobe mass done on July 19, 2020, immunohistochemistry showed positive for CK cocktail, CK7, p16, TTF-1, synaptophysin and negative for Napsin, CK 5/6, chromogranin A, CK20. Malignant cell suggestive of possible neuroendocrine origin involving submental lymph node per fine-needle aspiration done on May 21, 2020 Clinically extensive stage small cell lung cancer as CT PET scan done on June 08, 2020 showed Hypermetabolic left upper lobe mass again primary versus mets Malignant adenopathy in the mediastinum, mesentery, submentum, right axilla., Malignant facial implants, bilateral FDG positive adrenal masses representing metastatic disease. Bilaterals centrilobular emphysema. Questionable right hilar lymph node. intense abnormal activity in the transverse colon, primary colon cancer versus metastatic Basal cell carcinoma involving right chin and right anterior and posterior neck status post removal on May 31, 2020 Plan: Discussed with patient regarding his labs white blood count 11.5 hemoglobin 11.5 g hematocrit 37.1 platelets 402,000 CMP within normal limits and transbronchial biopsy of left upper lobe mass which confirmed small cell lung cancer. And biopsy of colon mass seen on CT PET scan showed tubulovillous adenoma. Clinically, patient is doing reasonably well, now transbronchial biopsy has confirmed patient has small cell lung cancer whereas CT PET scan showed extensive disease involving left upper lobe mass which is the primary then malignant adenopathy in mediastinum, mesentery, substernal, right axilla, bilateral adrenal mets and submental lymph node involvement confirmed with aspiration and is colonoscopy showed near obstructive lesion in the proximal descending colon but biopsy confirmed tubulovillous adenoma. Because of newly diagnosed extensive disease small cell lung cancer, further intervention regarding proximal descending colon mass, as biopsy showed it was not malignant, was postponed and patient was called in to discuss about treatment options, at this point, will consider MRI scan of the head to rule out brain mets and also start him on systemic chemotherapy with carboplatin/etoposide/Tecentriq All the side effects possible benefits associated with immune chemotherapy including but not limited to bone marrow suppression, which increased risk for infections and bleeding because of thrombocytopenia, nausea vomiting, hair loss, colitis, pneumonitis, liver toxicity, endocrinopathy especially with immunotherapy were discussed, further teaching will be done by chemotherapy nurse, patient already has Port-A-Cath placement, We will obtain approval from his insurance prior to the treatment and then consider carboplatin AUC 5 on day 1, etoposide 100 mg/m??? day 1 through 3 and Tecentriq 1200 mg on day 1 with Neulasta support to prevent chemotherapy-induced neutropenia/leukopenia and plan to do chemotherapy every 3 weeks x 3 cycle followed by follow-up CT PET scan if it shows complete remission then will continue with same regimen for 2-3 more cycle and repeat follow-up CT PET scan and if it confirm complete remission, then I will switch him to maintenance therapy with Tecentriq. We will also review his MRI scan of the brain, and plan accordingly. We will also give him prescription for allopurinol 100 mg 3 times a day, to prevent tumor lysis, also monitor his blood counts and electrolytes, patient was advised to maintain good hydration. Signed By: Cedric Lorenz M.D. <<Signature on File>>
== END 2020-08-05 05:48 | disposition home or self-care (01) ==
LOC: ONCMED 05:49
PROVIDERS: PCP Family Medicine; Visit Provider Internal Medicine Hematology & Oncology
DX: C34.12 Malignant neoplasm of upper lobe, left bronchus or lung (principal); J43.9 Emphysema, unspecified; Z79.899 Other long term (current) drug therapy
CPT/HCPCS: 99214

== ENCOUNTER 2020-08-19 09:41 | Outpatient (CLI) | payer MEDICARE, MEDICAID, SELFPAY ==
--- NOTE | 2020-08-19 10:02 | MR_ITS ---
WS: [id number] MRI BRAIN WITH AND WITHOUT CONTRAST HISTORY: BASAL CELL CARCINOMA COMPARISON: CT 05/24/2009 TECHNIQUE: Multiplanar imaging performed through the brain with Prohance 16 ml's IV. No acute infarcts. No hemorrhage or mass effect. Mild bilateral atrophy and moderate chronic microvascular ischemic changes. Three enhancing vertebral masses are identified. These masses are predominantly cystic or necrotic wi th peripheral enhancement. The largest peripherally enhancing mass measures 17 x 15 mm in the posteri or medial RIGHT parietal lobe. There is a nodular intensely enhancing component extending to about th e RIGHT midline falx. The solid enhancing component measures 6 x 7 mm. There is a smaller adjacent mo re posterior similar nodule measuring 10 x 15 mm in the medial RIGHT parietal lobe. Peripherally enha ncing nodule in the medial RIGHT temporal lobe measures 10 x 8 mm. Paranasal sinuses: Well aerated with no significant disease. Mastoid air cells: Normal. Calvarium and scalp: Normal. MR/MR head wo/w con [id number] IMPRESSION: 1. Cystic masses with peripheral enhancement consistent with metastatic diseas e are noted in the RIGHT cerebrum x3. 2. Largest cystic mass with peripheral enhancement and an intensely nodular en hancing component measures 17 x 15 mm in the medial RIGHT parietal lobe. Smalle r similar lesions in the medial RIGHT parietal lobe and in the medial RIGHT tem poral lobe. 3. Mild cerebral atrophy and chronic ischemic changes.
== END 2020-08-19 09:42 | disposition home or self-care (01) ==
LOC: RADWPI 09:47
PROVIDERS: PCP Family Medicine; Visit Provider Internal Medicine Hematology & Oncology
DX: C34.12 Malignant neoplasm of upper lobe, left bronchus or lung (principal); G31.9 Degenerative disease of nervous system, unspecified; I67.82 Cerebral ischemia
CPT/HCPCS: 70553; A9579

== ENCOUNTER 2020-08-19 10:15 | Outpatient (RCR) | payer MEDICARE, MEDICAID, SELFPAY ==
[2020-08-12 09:09] LABS: Basophils # 0.1 10^3/uL (0.0-0.1); Basophils % 0.5 %; Eosinophils # 0.4 10^3/uL (0.0-0.8); Eosinophils % 3.7 %; Hematocrit 34.8 % (42.0-52.0); Hemoglobin 10.7 g/dL (11.7-16.6); Lymphocytes # 2.1 10^3/uL (0.8-4.8); Mean Corpuscular HGB Conc 30.7 g/dL (30.0-36.0); Mean Corpuscular Hemoglobin 25.8 pg (28.0-34.0); Mean Corpuscular Volume 84.1 fL (80-94); Mean Platelet Volume 10.9 fL (7.4-10.4); Monocytes # 1.5 10^3/uL (0.2-0.9); Monocytes % 15.8 %; Neutrophils % 57.7 %; Nucleated Red Blood Cells % 0 %; Platelet Count 315 10^3/cmm (130-400); Red Blood Count 4.14 10^6/uL (4.1-5.3); Red Cell Distribution Width 13.4 % (12.1-15.1); White Blood Count 9.7 10^3/uL (4.0-10.0)
[2020-08-12 09:30] LABS: Alanine Aminotransferase < 5 U/L (0-41); Albumin Level 3.8 g/dL (3.5-5.2); Alkaline Phosphatase 70 IU/L (40-130); Anion Gap 14.6 (5-19); Aspartate Amino Transferase 14 U/L (0-40); Blood Urea Nitrogen 16 mg/dL (8-23); Calcium 8.8 mg/dL (8.5-10.5); Carbon Dioxide 27 mmol/L (22-29); Chloride 99 mmol/L (98-107); Globulin 3.4 g/dL (1.3-4.6); Glucose 91 mg/dL (65-115); Osmolality Calculated 283 mOsm/kg (285-295); Potassium 4.6 mmol/L (3.5-5.1); Sodium 136 mmol/L (136-145); Total Bilirubin 0.2 mg/dL (0.15-1.2); Total Protein 7.2 g/dL (6.6-8.7)
[2020-08-12] MEDS: sodium chloride 0.9% 250 ML IV (10:00)
[2020-08-12 10:29] LABS: Thyroid Stimulating Hormone 5.09 uIU/mL (0.27-4.20)
[2020-08-13] MEDS: sodium chloride 0.9% 250 ML 75 ML IV (13:25)
[2020-08-14] MEDS: pegfilgrastim 6 mg/0.6 mL Kit (onpro) SUBCUT (14:32)
[2020-08-19 12:51] LABS: Basophils # 0.1 10^3/uL (0.0-0.1); Basophils % 1.3 %; Eosinophils # 0.1 10^3/uL (0.0-0.8); Eosinophils % 2.8 %; Hematocrit 32.4 % (42.0-52.0); Hemoglobin 9.9 g/dL (11.7-16.6); Lymphocytes # 0.9 10^3/uL (0.8-4.8); Lymphocytes % 18.6 %; Mean Corpuscular HGB Conc 30.6 g/dL (30.0-36.0); Mean Corpuscular Hemoglobin 25.6 pg (28.0-34.0); Mean Corpuscular Volume 83.7 fL (80-94); Mean Platelet Volume 11.2 fL (7.4-10.4); Monocytes # 0.1 10^3/uL (0.2-0.9); Monocytes % 1.1 %; Neutrophils # 3.28 10^3/uL (1.8-7.7); Nucleated Red Blood Cells % 0 %; Platelet Count 112 10^3/cmm (130-400); Red Blood Count 3.87 10^6/uL (4.1-5.3); Red Cell Distribution Width 13.5 % (12.1-15.1); White Blood Count 4.7 10^3/uL (4.0-10.0)
[2020-08-19 13:17] LABS: Alanine Aminotransferase 12 U/L (0-41); Albumin Level 3.7 g/dL (3.5-5.2); Alkaline Phosphatase 92 IU/L (40-130); Anion Gap 13.3 (5-19); Aspartate Amino Transferase 13 U/L (0-40); Blood Urea Nitrogen 19 mg/dL (8-23); Carbon Dioxide 26 mmol/L (22-29); Chloride 102 mmol/L (98-107); Globulin 2.7 g/dL (1.3-4.6); Glucose 97 mg/dL (65-115); Osmolality Calculated 286 mOsm/kg (285-295); Potassium 4.3 mmol/L (3.5-5.1); Sodium 137 mmol/L (136-145); Total Bilirubin 0.5 mg/dL (0.15-1.2); Total Protein 6.4 g/dL (6.6-8.7)
[2020-08-19 13:44] LABS: Neutrophils % 76.2 %; Slide Review Slide Review Perform
== END 2020-08-19 23:59 | disposition home or self-care (01) ==
LOC: ONCMED 10:15
PROVIDERS: PCP Family Medicine; Visit Provider Internal Medicine Hematology & Oncology
DX: Z51.12 Encounter for antineoplastic immunotherapy (principal); C34.12 Malignant neoplasm of upper lobe, left bronchus or lung; Z51.81 Encounter for therapeutic drug level monitoring; Z79.899 Other long term (current) drug therapy; Z76.89 Persons encountering health services in other specified circumstances; G31.9 Degenerative disease of nervous system, unspecified; I67.82 Cerebral ischemia
CPT/HCPCS: 36591; 70553; 80053; 84443; 85025; 96367; 96372; 96413; 96417; A9579; J1100; J2405; J2469; J2505; J7040; J7050; J9022; J9045; J9181

== ENCOUNTER 2020-09-10 05:45 | Outpatient (RCR) | payer MEDICARE, MEDICAID, SELFPAY ==
--- NOTE | 2020-08-22 13:49 | ONC FU_ITS ---
Dr. Lorenz follow up note Patient: Kane Tavera Unit #: [id number]: 1940 Dicatated By: Cedric Lorenz M.D.Date of Visit:Aug 22, 2020 Onc Med Follow-up/Prog Note History of Present Illness: Mr. Kane Tavera is a 80-year-old gentleman with 2-months long history of nodule under his chin, for which he was referred to ENT for evaluation and underwent needle aspiration of submental lymph node on May 21, 2020 which showed malignant cell present and features were suggestive of possible neuroendocrine origin and there was a possibility of metastatic process because of that Dr. Nova ordered CT PET scan, which was done on June 08, 2020 showed intense abnormal activity in the transverse colon measuring 2.8 cm with SUV of 12.2, and also showed 2.7 x 4 cm left upper lobe mass with SUV of 18.1 and posterior left hilar and subaortic nodes have high likelihood of malignancy. And biopsied submental node measuring 1.6 cm has SUV of 10. And other malignant FDG positive nodes are present in right axilla, left lower quadrant mesenteric root, left external iliac territories., There are bilateral adrenal masses indicating metastatic disease measuring 4.1 cm on the right with SUV of 17.3 and 4.8 on the left with SUV of 24.1. Fascial and muscular implants are noted in the posterior right renal fascia, fascia in between the right gluteal muscle and subcutaneous lateral right hip. 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 Large cystic mass with peripheral enhancement and intensely nodular enhancement measuring 17 x 15 mm in the right medial parietal lobe. Smaller similar lesions in the medial right parietal lobe and in the right temporal lobe. 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 In the mid ascending colon, abnormal, multiple ascending polyps were seen and biopsy was obtained which also came back tubular villous adenoma low-grade. EGD was done on same date July 10, 2020 showed in the mid third esophagus, reflux disease seen, 7 pedunculated polyps 2 mm x 5 mm seen, not bleeding and was excised and biopsy shows squamocolumnar mucosa with reflux associated changes, no malignancy identified. Recent history of basal cell carcinoma removal from right chin, right anterior neck and right posterior neck on May 31, 2020. Patient denies any hemoptysis or hematemesis, denies any melena or hematochezia, denies any weight loss, patient said last colonoscopy was done more than 10 years ago. Denies any abdominal pain. Denies any shortness of breath, patient has history of smoking but quit many years ago. Came for follow-up, denies any specific complaints, tolerated first cycle of chemotherapy with carboplatin/etoposide/Tecentriq well, as per patient his submental mass has almost gone. But no nausea or vomiting no diarrhea or constipation no fever chills, no hemoptysis or hematemesis. No headaches or blurred vision or double vision Medications: Advair Diskus 1 Puff(s) (of 250-50 mcg/dose) Aerosol Powder, Breath Activated Inhalation every am, Ativan 1 Tablet (of 0.5 mg) Oral b.i.d., CeleXA 1 Tablet (of 10 mg) Oral daily, Combivent Respimat 1 Puff(s) (of 20-100 mcg/act) Aerosol, solution Inhalation four times a day, guaiFENesin 1 Tablet (of 400 mg) Oral b.i.d., HYDROcodone-Acetaminophen 1 Tablet (of 10-325 mg) Oral q 4 hours PRN, Melatonin 2 Tablet (of 5 mg) Oral at bedtime, Midodrine HCl 1 Tablet (of 2.5 mg) Oral t.i.d., Milk of Magnesia 30 mL (of 400 mg/5mL) Suspension Oral daily PRN, MiraLax 1 Powder Oral daily, Ondansetron HCl 1 Tablet (of 4 mg) Oral q 6 hours, PriLOSEC 1 Capsule (of 20 mg) Capsule Delayed Release Oral daily, ProAir HFA 2 Puff(s) (of 108 (90 base) mcg/act) Aerosol, solution Inhalation q 4 hours, Robafen DM 5 mL (of 100-10 mg/5mL) Syrup Oral q 4 hours PRN, Senna S 1 Tablet (of 8.6-50 mg) Oral b.i.d., Synthroid 1 Tablet (of 50 mcg) Oral daily Allergies: Aspirin and Levaquin. Review of Systems: Review of Systems is not available for this patient. Vital Signs: Performed on Aug 22, 2020 13:07 Height - 69.00 in Weight - 150.2 lbs (LOW) BSA - 1.83 sq.m BMI - 22.18 Temperature - 97.3 F (LOW) Pulse - 84 /min Respiration - 24 /min BP - 128/67 mm(hg) O2 Sat - 96 % Pain - 10 Performance Status: 0 - Fully active, able to carry on all predisease activities without restrictions. (ECOG) Physical Examination: ENMT - No mouth sores, no thrush, no jaundice, Respiratory - Lungs are clear to auscultation, Cardiovascular - Regular rate and rhythm of heart, Abdomen - Soft, bowel sounds present, Extremities - No visible edema or rash. Lab/Imaging: Test performed on Aug 12, 2020 08:43 Sodium 136 mmol/L Potassium 4.6 mmol/L Chloride 99 mmol/L CO2 27 mmol/L Anion Gap 14.6 BUN 16 mg/dL Creatinine 1.1 mg/dL Cr Clearance (Est) 51.5500 mL/min Glucose 91 mg/dL Osmolality - Calculated 283 mOsm/kg Calcium 8.8 mg/dL Protein, Total 7.2 g/dL Albumin 3.8 g/dL Globulin 3.4 g/dL Bilirubin, Total 0.2 mg/dL ALT (SGPT) < 5 U/L AST (SGOT) 14 U/L Alkaline Phosphatase 70 IU/L WBC 9.7 10 3/uL RBC 4.14 10 6/uL HGB 10.7 g/dL HCT 34.8 % MCV 84.1 fL MCH 25.8 pg MCHC 30.7 g/dL RDW 13.4 % Platelet Count 315 10 3/cmm MPV 10.9 fL Neutrophils 5.60 10 3/uL Lymphocytes 2.1 10 3/uL Monocytes 1.5 10 3/uL Eosinophils 0.4 10 3/uL Basophils 0.1 10 3/uL Neutrophil % 57.7 % Lymphocyte % 22.0 % Monocyte % 15.8 % Eosinophil % 3.7 % Basophils % 0.5 % NRBC % 0 % Test performed on Jun 27, 2020 15:45 CEA 3.2 ng/mL Impression: small cell lung cancer per transbronchial biopsy of left upper lobe mass done on July 19, 2020, immunohistochemistry showed positive for CK cocktail, CK7, p16, TTF-1, synaptophysin and negative for Napsin, CK 5/6, chromogranin A, CK20. Malignant cell suggestive of possible neuroendocrine origin involving submental lymph node per fine-needle aspiration done on May 21, 2020 Clinically extensive stage small cell lung cancer as CT PET scan done on June 08, 2020 showed Hypermetabolic left upper lobe mass again primary versus mets Malignant adenopathy in the mediastinum, mesentery, submentum, right axilla., Malignant facial implants, bilateral FDG positive adrenal masses representing metastatic disease. Bilaterals centrilobular emphysema. Questionable right hilar lymph node. intense abnormal activity in the transverse colon, primary colon cancer versus metastatic, Biopsy of colon mass showed tubulovillous adenoma MRI scan of the head done on August 19, 2020 showed 3 enhancing vertebral masses are predominantly cystic or necrotic with peripheral enhancement in the right cerebellum x3 Basal cell carcinoma involving right chin and right anterior and posterior neck status post removal on May 31, 2020 Plan: Discussed with patient regarding his labs white blood count 4.7 hemoglobin 9.9 hematocrit 32.4 platelets 112,000 CMP within normal limits and MRI scan of the brain findings which shows metastatic disease to the brain Clinically, patient doing well, tolerated first cycle of chemotherapy with carboplatin/etoposide/Tecentriq well his follow-up lab work-up is as expected with mild thrombocytopenia and anemia but white blood count in normal range. 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 And again patient not symptomatic due to brain mets and tolerating systemic immunochemotherapy well Mild thrombocytopenia, probably due to chemotherapy, will monitor Mild anemia, appears multifactorial, will monitor. He will return to clinic on September 02, 2020 with CBC CMP and a blood count looks reasonable we will proceed with cycle #2 with carboplatin/etoposide/Tecentriq and again as mentioned earlier we will do 3 cycles of chemotherapy/immunotherapy and then followed by CT PET scan to assess disease response and now as his brain MRI scan has shows asymptomatic brain mets we will also consider follow-up MRI scan of the brain. Patient was advised in case he has any headaches blurred vision or double vision or focal weakness he need to call us otherwise we will see him back in 10 days with CBC CMP. Signed By: Cedric Lorenz M.D. <<Signature on File>>
[2020-09-02 08:40] LABS: Basophils # 0.1 10^3/uL (0.0-0.1); Basophils % 0.5 %; Eosinophils % 0.1 %; Hematocrit 23.5 % (42.0-52.0); Lymphocytes # 1.9 10^3/uL (0.8-4.8); Lymphocytes % 11.2 %; Mean Corpuscular HGB Conc 29.8 g/dL (30.0-36.0); Mean Corpuscular Hemoglobin 25.1 pg (28.0-34.0); Mean Corpuscular Volume 84.2 fL (80-94); Mean Platelet Volume 9.4 fL (7.4-10.4); Monocytes # 2.2 10^3/uL (0.2-0.9); Monocytes % 13.2 %; Neutrophils # 12.35 10^3/uL (1.8-7.7); Neutrophils % 73.2 %; Nucleated Red Blood Cells # 0.1 /100WBC; Nucleated Red Blood Cells % 0.7 %; Platelet Count 823 10^3/cmm (130-400); Red Blood Count 2.79 10^6/uL (4.1-5.3); Red Cell Distribution Width 15.9 % (12.1-15.1); White Blood Count 16.9 10^3/uL (4.0-10.0)
[2020-09-02 09:13] LABS: Alanine Aminotransferase < 5 U/L (0-41); Albumin Level 3.3 g/dL (3.5-5.2); Alkaline Phosphatase 89 IU/L (40-130); Anion Gap 13.6 (5-19); Aspartate Amino Transferase 10 U/L (0-40); Blood Urea Nitrogen 10 mg/dL (8-23); Calcium 8.2 mg/dL (8.5-10.5); Carbon Dioxide 26 mmol/L (22-29); Chloride 102 mmol/L (98-107); Globulin 3.2 g/dL (1.3-4.6); Glucose 97 mg/dL (65-115); Osmolality Calculated 283 mOsm/kg (285-295); Potassium 4.6 mmol/L (3.5-5.1); Sodium 137 mmol/L (136-145); Thyroid Stimulating Hormone 1.61 uIU/mL (0.27-4.20); Total Bilirubin 0.2 mg/dL (0.15-1.2); Total Protein 6.5 g/dL (6.6-8.7)
--- NOTE | 2020-09-02 13:12 | ONC FU_ITS ---
[facility] Patient Note Patient: Kane Tavera Unit #: [id number]: [id number] Dictated By: Rambo WatersDate of Visit: Sep 02, 2020 Onc MED Follow-Up/Prog Note Chief Complaint: Abnormal CT PET scan History of Present Illness: Mr. Tavera is an 80-year-old gentleman with a 2-month history of nodule under his chin. He was referred to ENT for evaluation and underwent needle aspiration of submental lymph node on May 21, 2020. The pathology showed malignant cell present and features were suggestive of possible neuroendocrine origin. There was a possibility of metastatic process. Dr. Nova ordered CT PET scan, which was done on June 08, 2020. The PET/CT showed intense abnormal activity in the transverse colon measuring 2.8 cm with SUV of 12.2, and also showed 2.7 x 4 cm left upper lobe mass with SUV of 18.1 and posterior left hilar and subaortic nodes have high likelihood of malignancy. biopsied submental node measuring 1.6 cm has SUV of 10. And other malignant FDG positive nodes are present in right axilla, left lower quadrant mesenteric root, left external iliac territories., There are bilateral adrenal masses indicating metastatic disease measuring 4.1 cm on the right with SUV of 17.3 and 4.8 on the left with SUV of 24.1. Fascial and muscular implants are noted in the posterior right renal fascia, fascia in between the right gluteal muscle and subcutaneous lateral right hip. 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 Large cystic mass with peripheral enhancement and intensely nodular enhancement measuring 17 x 15 mm in the right medial parietal lobe. Smaller similar lesions in the medial right parietal lobe and in the right temporal lobe. Mr Tavera was referred to pulmonology and underwent bronchoscopy and transbronchial biopsy on July 19, 2020, came back small cell lung cancer, immunohistochemistry stains, positive for CK7, CK cocktail, TTF-1, synaptophysin, p16, and negative for CK20, Napsin, CK 5/6 Mr Tavera was also referred to GI for evaluation of transverse colon mass seen on CT PET scan. A colonoscopy was done on July 10, 2020. It reported proximal descending colon, a partially obstructive, large sized malignant appearing 3 cm x 7 cm mass. A biopsy was obtained which showed tubulovillous adenoma low-grade dysplasia. In the mid ascending colon, abnormal, multiple ascending polyps were seen and biopsy was obtained which also came back tubular villous adenoma low-grade. EGD was done on same date July 10, 2020 showed in the mid third esophagus, reflux disease seen, 7 pedunculated polyps 2 mm x 5 mm seen, not bleeding and was excised and biopsy shows squamocolumnar mucosa with reflux associated changes, no malignancy identified. Recent history of basal cell carcinoma removal from right chin, right anterior neck and right posterior neck on May 31, 2020. Mr Tavera was seen by Dr Lorenz and offered treatment with Carboplatin etoposide Tecentriq as well as a factor support with Neulasta. He began his first cycle on August 12, 2020. He has had mild thrombocytopenia with the chemotherapy but his neutrophil count has held well. Reside in [facility]. Person today. He states overall he is tired. He is not eating well but denies fever or chills. He denies mouth sores. He states he is just washed out. He reports that he has been having some blood in his stools. He states his stools have not been diarrhea they have been formed but he has noticed initially black stools and now it is bright red blood with the stools. He is taking his Protonix daily for medication report. If he has some nausea but typically if they give him nausea medication that is relieved. He states it is not having every day. He denies any heartburn symptoms. He requires a wheelchair for ambulation assistance at this time. His ECOG is 3. ^ Past Medical History: Anxiety Chronic obstructive pulmonary disease Depression Gastroesophageal reflux disease History of alcoholism Hypothyroidism Post traumatic stress disorder Past Surgical History: Cataract excision Cholecystectomy Allergies: Aspirin and Levaquin. Medications: Advair Diskus 1 Puff(s) (of 250-50 mcg/dose) Aerosol Powder, Breath Activated Inhalation every am Ativan 1 Tablet (of 0.5 mg) Oral q 6 hours PRN CeleXA 1 Tablet (of 20 mg) Oral daily Colace 1 Capsule (of 100 mg) Oral daily PRN Combivent Respimat 1 Puff(s) (of 20-100 mcg/act) Aerosol, solution Inhalation four times a day Cyproheptadine HCl 1 Tablet (of 4 mg) Oral daily guaiFENesin 1 Tablet (of 400 mg) Oral b.i.d. HYDROcodone-Acetaminophen 1 Tablet (of 10-325 mg) Oral q 4 hours PRN Melatonin 2 Tablet (of 5 mg) Oral at bedtime Midodrine HCl 1 Tablet (of 2.5 mg) Oral t.i.d. Milk of Magnesia 30 mL (of 400 mg/5mL) Suspension Oral daily PRN MiraLax 1 Powder Oral daily Mylanta 30 mL (of 200-200-20 mg/5mL) Suspension Oral PRN Ondansetron HCl 1 Tablet (of 4 mg) Oral q 6 hours PriLOSEC 1 Capsule (of 20 mg) Capsule Delayed Release Oral daily ProAir HFA 2 Puff(s) (of 108 (90 base) mcg/act) Aerosol, solution Inhalation q 4 hours Prochlorperazine Maleate 1 Tablet (of 10 mg) Oral q 4 hours PRN Protonix 1 Tablet (of 40 mg) Tablet, enteric coated Oral daily Robafen DM 5 mL (of 100-10 mg/5mL) Syrup Oral q 4 hours PRN Senna S 1 Tablet (of 8.6-50 mg) Oral b.i.d. Synthroid 1 Tablet (of 50 mcg) Oral daily Family History: Mr. Tavera's mother at age 78: jaw cancer. Mr. Tavera's father at age 70: stomach cancer. pt has 3 brothers but is unsure about their medical history. Social History: Mr. Tavera is . Review Of Symptoms: Constitutional Denies fevers, chills, night sweats, excessive fatigue or weight loss. FA Allergic/Immunologic No reactions. Eyes Denies significant visual changes. No diplopia. No amaurosis. ENMT Denies changes in hearing, sore throat, mouth sores, difficulty or changes in swallowing ability, and/or sinus drainage. Endocrine No diabetes, thyroid disease or hormone replacement. Denies hot flashes or night sweats. Hematologic/Lymphatic Denies easy bruising or bleeding. The patient denies any tender or palpable lymph nodes. I dnodt Breasts Respiratory Denies dyspnea on exertion, chest pain, cough or hemoptysis. Denies orthopnea. Cardiovascular Denies anginal chest pain, palpitations or orthopnea. Gastrointestinal Denies nausea, vomiting, diarrhea, GI bleeding, or constipation. Denies change in bowel habits and/or stool color, no heartburn or early satiety. Genitourinary (M) Denies hematuria, dysuria, increased frequency, urgency, hesitancy or incontinence. Musculoskeletal Denies joint pain, swelling or redness. No decreased range of motion. Integumentary Denies chronic rashes, inflammation, ulcerations or skin changes. Neurologic Denies headache, blurred vision, and no areas of focal weakness or numbness. Normal gait. No sensory problems. Psychiatric Denies insomnia, depression, nicolasa or mood swings. Vital Signs: Performed on Sep 02, 2020 08:57 Height - 69.00 in Weight - 149.4 lbs (LOW) BSA - 1.82 sq.m BMI - 22.06 Temperature - 98.3 F (LOW) Pulse - 70 /min Respiration - 20 /min BP - 106/60 mm(hg) O2 Sat - 92 % (LOW) Pain - 6,2 - Ambulatory/capable of all self-care, unable to perform any work activities. Up and about more than 50% of waking hours. (ECOG) Physical Examination: Constitutional Alert, oriented, no acute distress. Skin pink, warm and dry. Eyes Conjunctivae and sclerae are clear and without icterus. Pupils are reactive and equal. Neck Supple without masses or thyromegaly. No jugular venous distension. Hematologic/Lymphatic No petechiae or purpura. No tender or palpable lymph nodes in the cervical or supraclavicular areas. Respiratory Lungs are clear to auscultation without rhonchi or wheezing. Cardiovascular Regular rate and rhythm of heart without murmurs,clicks, gallops or rubs. Chest Chest is symmetric without chest wall deformities. Breasts Abdomen Non-tender, non-distended, no masses or ascites. Good bowel sounds noted in all quads. No guarding or rebound tenderness. No pulsatile masses. Back/Spine Non-tender to palpation. Extremities No visible deformities, no cyanosis, clubbing or edema. Musculoskeletal No tenderness or swelling, normal range of motion without obvious weakness. Integumentary No rashes or lesions. Neurologic No sensory or motor deficits, normal cerebellar function, normal gait. Psychiatric Alert and oriented times three. Coherent speech. Verbalizes understanding of our discussions today. Laboratory:Test performed on Sep 02, 2020 08:15 Sodium 137 mmol/L TSH 1.61 uIU/mL Potassium 4.6 mmol/L Chloride 102 mmol/L CO2 26 mmol/L Anion Gap 13.6 BUN 10 mg/dL Creatinine 0.9 mg/dL Cr Clearance (Est) 63.0100 mL/min Glucose 97 mg/dL Osmolality - Calculated 283 mOsm/kg Calcium 8.2 mg/dL Protein, Total 6.5 g/dL Albumin 3.3 g/dL Globulin 3.2 g/dL Bilirubin, Total 0.2 mg/dL ALT (SGPT) < 5 U/L AST (SGOT) 10 U/L Alkaline Phosphatase 89 IU/L WBC 16.9 10 3/uL RBC 2.79 10 6/uL HGB 7.0 g/dL HCT 23.5 % MCV 84.2 fL MCH 25.1 pg MCHC 29.8 g/dL RDW 15.9 % Platelet Count 823 10 3/cmm MPV 9.4 fL Neutrophils 12.35 10 3/uL Lymphocytes 1.9 10 3/uL Monocytes 2.2 10 3/uL Eosinophils 0.0 10 3/uL Basophils 0.1 10 3/uL Neutrophil % 73.2 % Lymphocyte % 11.2 % Monocyte % 13.2 % Eosinophil % 0.1 % Basophils % 0.5 % NRBC % 0.7 % Impression: small cell lung cancer per transbronchial biopsy of left upper lobe mass done on July 19, 2020, immunohistochemistry showed positive for CK cocktail, CK7, p16, TTF-1, synaptophysin and negative for Napsin, CK 5/6, chromogranin A, CK20. Malignant cell suggestive of possible neuroendocrine origin involving submental lymph node per fine-needle aspiration done on May 21, 2020 Clinically extensive stage small cell lung cancer as CT PET scan done on June 08, 2020 showed Hypermetabolic left upper lobe mass again primary versus mets Malignant adenopathy in the mediastinum, mesentery, submentum, right axilla., Malignant facial implants, bilateral FDG positive adrenal masses representing metastatic disease. Bilaterals centrilobular emphysema. Questionable right hilar lymph node. intense abnormal activity in the transverse colon, primary colon cancer versus metastatic, Biopsy of colon mass showed tubulovillous adenoma MRI scan of the head done on August 19, 2020 showed 3 enhancing vertebral masses are predominantly cystic or necrotic with peripheral enhancement in the right cerebellum x3 Basal cell carcinoma involving right chin and right anterior and posterior neck status post removal on May 31, 2020. Mr Tavera began his first cycle of Carboplatin/etoposide, Tecentriq on 08/12/2020. His MRI scan of the brain was done on August 19, 2020. to assess extent of disease. 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 Mr Tavera is not symptomatic due to brain mets and tolerating systemic immunochemotherapy well. Mild thrombocytopenia, probably due to chemotherapy resolved today. Plan: 1. Small cell left upper lobe: Hold planned chemotherapy today due to HGB of 7.0 and reports of rectal bleeding. 2. LABS: Labs from today were reviewed in detail and discussed with Mr. Tavera and a copy was given to him. WBC 16.9, he did have Neulasta on 08/14/2020 close, 7 hematocrit 23.5 platelets 823,000 potassium 4.6 creatinine 0.9 LFTs are normal and TSH is normal at 1.61. A. I discussed at length with Mr. Tavera that he needed 2 units of packed red blood cells given that his hemoglobin is 7. He states he does not feel that bad and does not think he needs blood at this point. He was in greement to let us check his blood on Wednesday and return for blood transfuscion on if his hemoglobin drops below 7. We discussed potential risk including worsening fatigue, fever chills new shortness of breath, chest pain or any other symptoms that are new for him. B. Per Dr Lorenz's last office note: we will do 3 cycles of chemotherapy/immunotherapy and then followed by CT PET scan to assess disease response and his brain MRI scan has shows asymptomatic brain mets. We will also consider follow-up MRI scan of the brain. C. Increase Protonix to 40 mg twice daily. D. We discussed referral to GI for colonoscopy patient states he is not in any hurry. 4. We will plan to check Mr Tavera's labs on Wednesday09/09/2020) and determine further plan of from there. Currently his states he does not want puruse any further chemotherapy. D: Mr. Tavera the possibility of complications of not having blood transfusion today. His hemoglobin is at 7. We discussed chest pain or palpitations, nausea vomiting, and rash and follow-up plan. Signed By: Rambo Waters-, [facility] Jeannie Lorenz MD <<Signature on File>>
[2020-09-04 12:58] LABS: Basophils # 0.1 10^3/uL (0.0-0.1); Basophils % 0.8 %; Eosinophils % 0.1 %; Hematocrit 23.5 % (42.0-52.0); Lymphocytes % 13.9 %; Mean Corpuscular HGB Conc 29.8 g/dL (30.0-36.0); Mean Corpuscular Hemoglobin 25.7 pg (28.0-34.0); Mean Corpuscular Volume 86.4 fL (80-94); Mean Platelet Volume 9.5 fL (7.4-10.4); Monocytes # 1.9 10^3/uL (0.2-0.9); Monocytes % 13.1 %; Neutrophils # 10.39 10^3/uL (1.8-7.7); Neutrophils % 71.3 %; Nucleated Red Blood Cells # 0.1 /100WBC; Nucleated Red Blood Cells % 0.4 %; Platelet Count 712 10^3/cmm (130-400); Red Blood Count 2.72 10^6/uL (4.1-5.3); Red Cell Distribution Width 15.9 % (12.1-15.1); White Blood Count 14.6 10^3/uL (4.0-10.0)
[2020-09-09 08:50] LABS: Basophils # 0.1 10^3/uL (0.0-0.1); Eosinophils % 0.2 %; Hematocrit 23.9 % (42.0-52.0); Lymphocytes # 1.6 10^3/uL (0.8-4.8); Mean Corpuscular HGB Conc 29.3 g/dL (30.0-36.0); Mean Corpuscular Hemoglobin 25.1 pg (28.0-34.0); Mean Corpuscular Volume 85.7 fL (80-94); Mean Platelet Volume 9.5 fL (7.4-10.4); Monocytes # 2.4 10^3/uL (0.2-0.9); Monocytes % 20.4 %; Neutrophils # 7.38 10^3/uL (1.8-7.7); Nucleated Red Blood Cells % 0.2 %; Platelet Count 683 10^3/cmm (130-400); Red Blood Count 2.79 10^6/uL (4.1-5.3); White Blood Count 11.6 10^3/uL (4.0-10.0)
[2020-09-09 09:08] LABS: Alanine Aminotransferase 7 U/L (0-41); Albumin Level 3.4 g/dL (3.5-5.2); Alkaline Phosphatase 96 IU/L (40-130); Anion Gap 11.5 (5-19); Aspartate Amino Transferase 10 U/L (0-40); Blood Urea Nitrogen 15 mg/dL (8-23); Calcium 8.5 mg/dL (8.5-10.5); Carbon Dioxide 27 mmol/L (22-29); Chloride 101 mmol/L (98-107); Globulin 3.4 g/dL (1.3-4.6); Glucose 92 mg/dL (65-115); Osmolality Calculated 280 mOsm/kg (285-295); Potassium 4.5 mmol/L (3.5-5.1); Sodium 135 mmol/L (136-145); Total Bilirubin 0.3 mg/dL (0.15-1.2); Total Protein 6.8 g/dL (6.6-8.7)
--- NOTE | 2020-09-09 09:59 | ONC FU_ITS ---
Dr. Lorenz follow up note Patient: Kane Tavera Unit #: [id number]: [id number] Dicatated By: Cedric Lorenz M.D.Date of Visit:Sep 09, 2020 Onc Med Follow-up/Prog Note History of Present Illness: Mr. Tavera is an 80-year-old gentleman with a 2-month history of nodule under his chin. He was referred to ENT for evaluation and underwent needle aspiration of submental lymph node on May 21, 2020. The pathology showed malignant cell present and features were suggestive of possible neuroendocrine origin. There was a possibility of metastatic process. Dr. Nova ordered CT PET scan, which was done on June 08, 2020. The PET/CT showed intense abnormal activity in the transverse colon measuring 2.8 cm with SUV of 12.2, and also showed 2.7 x 4 cm left upper lobe mass with SUV of 18.1 and posterior left hilar and subaortic nodes have high likelihood of malignancy. biopsied submental node measuring 1.6 cm has SUV of 10. And other malignant FDG positive nodes are present in right axilla, left lower quadrant mesenteric root, left external iliac territories., There are bilateral adrenal masses indicating metastatic disease measuring 4.1 cm on the right with SUV of 17.3 and 4.8 on the left with SUV of 24.1. Fascial and muscular implants are noted in the posterior right renal fascia, fascia in between the right gluteal muscle and subcutaneous lateral right hip. 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 Large cystic mass with peripheral enhancement and intensely nodular enhancement measuring 17 x 15 mm in the right medial parietal lobe. Smaller similar lesions in the medial right parietal lobe and in the right temporal lobe. Mr Tavera was referred to pulmonology and underwent bronchoscopy and transbronchial biopsy on July 19, 2020, came back small cell lung cancer, immunohistochemistry stains, positive for CK7, CK cocktail, TTF-1, synaptophysin, p16, and negative for CK20, Napsin, CK 5/6 Mr Tavera was also referred to GI for evaluation of transverse colon mass seen on CT PET scan. A colonoscopy was done on July 10, 2020. It reported proximal descending colon, a partially obstructive, large sized malignant appearing 3 cm x 7 cm mass. A biopsy was obtained which showed tubulovillous adenoma low-grade dysplasia. In the mid ascending colon, abnormal, multiple ascending polyps were seen and biopsy was obtained which also came back tubular villous adenoma low-grade. EGD was done on same date July 10, 2020 showed in the mid third esophagus, reflux disease seen, 7 pedunculated polyps 2 mm x 5 mm seen, not bleeding and was excised and biopsy shows squamocolumnar mucosa with reflux associated changes, no malignancy identified. Recent history of basal cell carcinoma removal from right chin, right anterior neck and right posterior neck on May 31, 2020. Mr Tavera was offered treatment with Carboplatin etoposide Tecentriq as well as a factor support with Neulasta. He began his first cycle on August 12, 2020. He has had mild thrombocytopenia with the chemotherapy but his neutrophil count has held well. Reside in [facility]. Came for follow-up, denies any specific complaints, except generalized weakness and fatigue, no chest pain or shortness of breath no palpitation at rest, no jaundice, no melena hematochezia no hemoptysis or hematemesis, no fever chills, no nausea or vomiting, no diarrhea or constipation, tolerated first cycle of chemotherapy with carboplatin/etoposide/Tecentriq well, Medications: Advair Diskus 1 Puff(s) (of 250-50 mcg/dose) Aerosol Powder, Breath Activated Inhalation every am, Ativan 1 Tablet (of 0.5 mg) Oral q 6 hours PRN, CeleXA 1 Tablet (of 20 mg) Oral daily, Colace 1 Capsule (of 100 mg) Oral daily PRN, Combivent Respimat 1 Puff(s) (of 20-100 mcg/act) Aerosol, solution Inhalation four times a day, Cyproheptadine HCl 1 Tablet (of 4 mg) Oral daily, guaiFENesin 1 Tablet (of 400 mg) Oral b.i.d., HYDROcodone-Acetaminophen 1 Tablet (of 10-325 mg) Oral q 4 hours PRN, Melatonin 2 Tablet (of 5 mg) Oral at bedtime, Midodrine HCl 1 Tablet (of 2.5 mg) Oral t.i.d., Milk of Magnesia 30 mL (of 400 mg/5mL) Suspension Oral daily PRN, MiraLax 1 Powder Oral daily, Mylanta 30 mL (of 200-200-20 mg/5mL) Suspension Oral PRN, Ondansetron HCl 1 Tablet (of 4 mg) Oral q 6 hours, PriLOSEC 1 Capsule (of 20 mg) Capsule Delayed Release Oral daily, ProAir HFA 2 Puff(s) (of 108 (90 base) mcg/act) Aerosol, solution Inhalation q 4 hours, Prochlorperazine Maleate 1 Tablet (of 10 mg) Oral q 4 hours PRN, Protonix 1 Tablet (of 40 mg) Tablet, enteric coated Oral daily, Robafen DM 5 mL (of 100-10 mg/5mL) Syrup Oral q 4 hours PRN, Senna S 1 Tablet (of 8.6-50 mg) Oral b.i.d., Synthroid 1 Tablet (of 50 mcg) Oral daily Allergies: Aspirin and Levaquin. Review of Systems: Review of Systems is not available for this patient. Vital Signs: Performed on Sep 09, 2020 08:27 Height - 69.00 in Weight - 149.2 lbs (LOW) BSA - 1.82 sq.m BMI - 22.03 Temperature - 97.1 F (LOW) Pulse - 69 /min Respiration - 16 /min BP - 99/49 mm(hg) O2 Sat - 90 % (LOW) Pain - 2 Performance Status: 2 - Ambulatory/capable of all self-care, unable to perform any work activities. Up and about more than 50% of waking hours. (ECOG) Physical Examination: ENMT - No mouth sores, no thrush, no jaundice, Respiratory - Lungs are clear to auscultation, Cardiovascular - Regular rate and rhythm of heart, Abdomen - Soft, bowel sounds present, Extremities - No visible edema. Lab/Imaging: Test performed on Sep 09, 2020 08:25 Sodium 135 mmol/L Potassium 4.5 mmol/L Chloride 101 mmol/L CO2 27 mmol/L Anion Gap 11.5 BUN 15 mg/dL Creatinine 0.9 mg/dL Cr Clearance (Est) 63.0100 mL/min Glucose 92 mg/dL Osmolality - Calculated 280 mOsm/kg Calcium 8.5 mg/dL Protein, Total 6.8 g/dL Albumin 3.4 g/dL Globulin 3.4 g/dL Bilirubin, Total 0.3 mg/dL ALT (SGPT) 7 U/L AST (SGOT) 10 U/L Alkaline Phosphatase 96 IU/L Test performed on Sep 04, 2020 09:10 WBC 14.6 10 3/uL RBC 2.72 10 6/uL HGB 7.0 g/dL HCT 23.5 % MCV 86.4 fL MCH 25.7 pg MCHC 29.8 g/dL RDW 15.9 % Platelet Count 712 10 3/cmm MPV 9.5 fL Neutrophils 10.39 10 3/uL Lymphocytes 2.0 10 3/uL Monocytes 1.9 10 3/uL Eosinophils 0.0 10 3/uL Basophils 0.1 10 3/uL Neutrophil % 71.3 % Lymphocyte % 13.9 % Monocyte % 13.1 % Eosinophil % 0.1 % Basophils % 0.8 % NRBC % 0.4 % Test performed on Sep 02, 2020 08:15 TSH 1.61 uIU/mL Test performed on Aug 19, 2020 12:24 CBC Slide Review Slide Review Perform REVIEW AGREES WITH AUTOMATED Test performed on Jun 27, 2020 15:45 CEA 3.2 ng/mL Impression: small cell lung cancer per transbronchial biopsy of left upper lobe mass done on July 19, 2020, immunohistochemistry showed positive for CK cocktail, CK7, p16, TTF-1, synaptophysin and negative for Napsin, CK 5/6, chromogranin A, CK20. Malignant cell suggestive of possible neuroendocrine origin involving submental lymph node per fine-needle aspiration done on May 21, 2020 Clinically extensive stage small cell lung cancer as CT PET scan done on June 08, 2020 showed Hypermetabolic left upper lobe mass again primary versus mets Malignant adenopathy in the mediastinum, mesentery, submentum, right axilla., Malignant facial implants, bilateral FDG positive adrenal masses representing metastatic disease. Bilaterals centrilobular emphysema. Questionable right hilar lymph node. intense abnormal activity in the transverse colon, primary colon cancer versus metastatic, Biopsy of colon mass showed tubulovillous adenoma MRI scan of the head done on August 19, 2020 showed 3 enhancing vertebral masses are predominantly cystic or necrotic with peripheral enhancement in the right cerebellum x3 Basal cell carcinoma involving right chin and right anterior and posterior neck status post removal on May 31, 2020. Mr Tavera began his first cycle of Carboplatin/etoposide, Tecentriq on 08/12/2020. His MRI scan of the brain was done on August 19, 2020. to assess extent of disease. 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 Mr Tavera is not symptomatic due to brain mets and tolerating systemic immunochemotherapy well. Anemia, etiology unclear could be multifactorial Plan: Discussed with patient regarding his labs white blood count 11.6 hemoglobin 7 hematocrit 23.9 platelets 683,000 MCV 85.7 Clinically, patient is doing reasonably well, tolerating systemic chemoimmunotherapy with carboplatin/etoposide/Tecentriq well, will proceed with next cycle of chemotherapy/immunotherapy with Neulasta support, today and then return to clinic in 10 days with CBC CMP As far as anemia is concerned, as patient is symptomatic, we will consider type and cross and transfuse 2 units of packed RBCs with Lasix 20 mg after first unit transfused. And also consider iron studies, B12 level and if low, consider supplement. Signed By: Cedric Lorenz M.D. <<Signature on File>>
[2020-09-09] MEDS: sodium chloride 0.9% 250 ML IV (10:00)
[2020-09-09] MEDS: ondansetron 2 mg/ML SDV 2 mL 8 MG IV (10:00)
[2020-09-09 11:41] LABS: Ferritin 56 ng/mL (30-400); Iron 15 ug/dL (59-158); Percent Saturation 6.1 % (20-50); Total Iron Binding Capacity 243 mcg/dl; Unsaturated Iron Binding 228 ug/dL (112-347)
[2020-09-09 11:58] LABS: Vitamin B12 1056 pg/mL (232-1245)
[2020-09-09] MEDS: HYDROcodone-acetaminophen 10-325 mg Tablet 1 TAB PO (12:53)
== END 2020-09-19 23:59 | disposition home or self-care (01) ==
LOC: ONCMED 05:45
PROVIDERS: Nurse Practitioner; PCP Family Medicine; Visit Provider Internal Medicine Hematology & Oncology
DX: Z51.12 Encounter for antineoplastic immunotherapy (principal); Z51.11 Encounter for antineoplastic chemotherapy; C34.12 Malignant neoplasm of upper lobe, left bronchus or lung; F41.9 Anxiety disorder, unspecified; J44.9 Chronic obstructive pulmonary disease, unspecified; F32.9 Major depressive disorder, single episode, unspecified; K21.9 Gastro-esophageal reflux disease without esophagitis; F10.20 Alcohol dependence, uncomplicated; E03.9 Hypothyroidism, unspecified; F43.10 Post-traumatic stress disorder, unspecified; Z79.899 Other long term (current) drug therapy
CPT/HCPCS: 36415; 36591; 80053; 82607; 82728; 83540; 83550; 84443; 85025; 96367; 96375; 96413; 96417; 99214; J1100; J2405; J7040; J7050; J9022; J9045; J9181

== ENCOUNTER 2020-09-24 09:38 | Outpatient (RCR) | payer MEDICARE, MEDICAID, SELFPAY ==
[2020-09-24 10:29] LABS: Basophils % 0.6 %; Eosinophils # 0.2 10^3/uL (0.0-0.8); Eosinophils % 4.5 %; Hematocrit 22.7 % (42.0-52.0); Hemoglobin 6.8 g/dL (11.7-16.6); Lymphocytes # 1.1 10^3/uL (0.8-4.8); Lymphocytes % 23.2 %; Mean Corpuscular Hemoglobin 25.9 pg (28.0-34.0); Mean Corpuscular Volume 86.3 fL (80-94); Monocytes % 21.1 %; Neutrophils # 2.46 10^3/uL (1.8-7.7); Neutrophils % 50.4 %; Nucleated Red Blood Cells % 0 %; Platelet Count 100 10^3/cmm (130-400); Red Blood Count 2.63 10^6/uL (4.1-5.3); Red Cell Distribution Width 18.8 % (12.1-15.1); White Blood Count 4.9 10^3/uL (4.0-10.0)
[2020-09-24] MEDS: diphenhydrAMINE 25 mg Capsule PO (12:10)
[2020-09-24] MEDS: sodium chloride 0.9% 250 ML 999 ML IV (12:10)
[2020-09-24] MEDS: acetaminophen 325 mg Tablet 650 MG PO (12:10)
[2020-09-24 12:50] VITALS: BP 109/63; PULSE 76; RESP 18; TEMP 37.3; O2SAT 95
[2020-09-24] MEDS: ipratropium-albuterol 3 mL Neb INHALATION (13:00)
[2020-09-24 13:05] VITALS: BP 108/61; PULSE 74; RESP 18; TEMP 37.4; O2SAT 95
[2020-09-24 13:35] VITALS: BP 108/64; PULSE 76; RESP 18; TEMP 37.3; O2SAT 95
[2020-09-24 14:20] VITALS: BP 121/70; PULSE 74; RESP 18; TEMP 37.3; O2SAT 95
[2020-09-24] MEDS: FUROsemide 10 mg/mL SDV 2mL 20 MG IV (14:25)
[2020-09-25 16:00] VITALS: BP 109/58; PULSE 71; RESP 18; TEMP 37.2; O2SAT 95
== END 2020-10-20 23:59 | disposition home or self-care (01) ==
LOC: ONCMED 09:38
PROVIDERS: PCP Family Medicine; Visit Provider Internal Medicine Hematology & Oncology
DX: C34.12 Malignant neoplasm of upper lobe, left bronchus or lung (principal); C18.9 Malignant neoplasm of colon, unspecified; C44.319 Basal cell carcinoma of skin of other parts of face; C77.8 Secondary and unspecified malignant neoplasm of lymph nodes of multiple regions; C79.72 Secondary malignant neoplasm of left adrenal gland; C79.71 Secondary malignant neoplasm of right adrenal gland; C79.89 Secondary malignant neoplasm of other specified sites; J43.9 Emphysema, unspecified
CPT/HCPCS: 85025; 86850; 86900; 86920; J1940; J7050; P9016